=== PATIENT | female | born 1980 ===

== ENCOUNTER 2020-01-25 15:29 | Emergency (ER) | payer SELFPAY ==
[~2020-01-25] VITALS: Ht 167.6 cm; Wt 118.6 kg
--- NOTE | 2020-01-25 16:23 | NUR ---
PT STATES SHE HAS BEEN SHORT OF BREATH W COUGH SINCE SUNDAY. DENIES CP. STATES HE HAS HAD SOME N/V/D. PT VSS, NOT IN RESP DISTRESS. WAITING FOR FURTHER ORDERS.
[2020-01-25 16:55] LABS: BASOPHILS # (AUTO) 0.02 x10^3/uL (0-0.1); BASOPHILS % (AUTO) 0 % (0-1); EOSINOPHILS # (AUTO) 0.02 x10^3/uL (0-0.4); EOSINOPHILS % (AUTO) 0 % (1-7); LYMPHOCYTES % (AUTO) 15 % (22-44); MD NO; MEAN CORPUSCULAR HGB CONC 33.3 g/dL (32.4-35.8); MEAN CORPUSCULAR VOLUME 87.3 fL (80-100); MEAN PLATELET VOLUME 7.9 fL (7.4-10.4); MONOCYTES # (AUTO) 0.53 x10^3/uL (0.2-0.8); MONOCYTES % (AUTO) 6 % (2-9); NEUTROPHILS # (AUTO) 7.34 x10^3/uL (1.8-6.8); NEUTROPHILS % (AUTO) 79 % (42-75); PLATELET COUNT 283 x10^3/uL (130-400); RED BLOOD COUNT 5.36 x10^6/uL (3.82-5.3); RED CELL DISTRIBUTION WIDTH 14.1 % (9.6-15.2)
[2020-01-25] MEDS ORDERED: SODIUM CHLORIDE 0.9% 1,000ML IVBOLUS ONE (17:00)
[2020-01-25] MEDS ORDERED: KETOROLAC 30 MG/1 ML IVPush ONE (17:00)
[2020-01-25 17:09] LABS: ALANINE AMINOTRANSFERASE 30 U/L (12-78); ALBUMIN 3.6 g/dL (3.4-5.0); ANION GAP 5 mmol/L (5-15); C-REACTIVE PROTEIN, QUANT 0.91 mg/dL (0.02-0.49); CALCIUM 8.9 mg/dL (8.5-10.1); CHLORIDE 107 mmol/L (98-107); CREATININE 0.79 mg/dL (0.55-1.02)
[2020-01-25 17:11] LABS: ALKALINE PHOSPHATASE 91 U/L (45-117); BILIRUBIN,TOTAL 0.3 mg/dL (0.2-1.0); TOTAL PROTEIN 7.9 g/dL (6.4-8.2)
[2020-01-25] MEDS ORDERED: KETOROLAC 30 MG/1 ML ONE (17:17)
[2020-01-25 17:52] VITALS: BP 114/82
== END 2020-01-25 18:34 | disposition home or self-care (01) ==
LOC: ED 18:00
DX: U07.1 COVID-19 (principal); J18.1 Lobar pneumonia, unspecified organism; J06.9 Acute upper respiratory infection, unspecified; R00.0 Tachycardia, unspecified; M79.10 Myalgia, unspecified site; R11.0 Nausea
CPT/HCPCS: 36415; 71045; 80053; 84145; 85025; 86140; 87635; 93005; 96374; 99285; J1885; J7030; 96372